=== PATIENT | female | born 1960 | race Caucasian/White ===

== ENCOUNTER 2018-06-18 17:20 | Emergency (ER) | payer MEDICARE, OTHER ==
[~2018-06-18] VITALS: Ht 162.6 cm; Wt 77.1 kg
[2018-06-18 19:10] LABS: Basophils # (auto) 0.2 uL; Basophils % (auto) 1.2 % (0.0-2.0); Eosinophils # (auto) 0 uL; Eosinophils % (auto) 0.1 % (0.0-7.0); Hematocrit 46.9 % (36.0-46.0); Hemoglobin 15.4 g/dL (12.2-16.2); Lymphocytes # (auto) 1.4 uL; Lymphocytes % (auto) 10.7 % (10.0-50.0); Mean Corpuscular Hemoglobin 28.8 pg (28.0-32.0); Mean Corpuscular Hgb Conc. 32.9 g/dL (32.0-36.0); Mean Corpuscular Volume 87.6 fL (80.0-100.0); Monocytes # (auto) 0.7 uL; Monocytes % (auto) 5.4 % (0.0-12.0); Neutrophils # (auto) 11.1 uL; Neutrophils % (auto) 82.6 % (37.0-80.0); Nucleated Red Blood Cells % 0.1 %; Platelet Count (auto) 336 10^3/uL (140-450); Red Blood Cells 5.36 10^6/uL (4.0-5.20); Red Cell Distribution Width 14.2 % (11.8-14.3); White Blood Cell 13.5 10^3/uL (4.4-10.8)
[2018-06-18 19:35] LABS: Albumin 2.8 g/dL (3.4-5.0); Anion Gap 11 (5-15); Blood Urea Nitrogen 11 mg/dL (7-18); Calcium 8.8 mg/dL (8.5-10.1); Carbon Dioxide 22 mmol/L (21-32); Chloride 98 mmol/L (98-107); Glucose 335 mg/dL (74-106); Potassium 3.5 mmol/L (3.5-5.1); Sodium 131 mmol/L (136-145)
[2018-06-18 19:41] LABS: Alanine Aminotransferase 21 U/L (13-56); Alkaline Phosphatase 104 U/L (45-117); Aspartate Aminotransferase 12 U/L (15-37); BUN/Creatinine Ratio 10.4; Bilirubin, Total 0.4 mg/dL (0.2-1.0); GFR African American 68 mL/min; GFR Non-African American 56 mL/min; Total Protein 8.2 g/dL (6.4-8.2)
[2018-06-18 22:15] VITALS: BP 154/83
[2018-06-18] MEDS ORDERED: cefTRIAXone SOD 1,000 MG VL IM ONE (22:30)
== END 2018-06-18 23:40 | disposition home or self-care (01) ==
LOC: ER 17:38
DX: J20.9 Acute bronchitis, unspecified (principal); E11.65 Type 2 diabetes mellitus with hyperglycemia; I10 Essential (primary) hypertension
CPT/HCPCS: 36415; 71046; 80053; 82962; 84484; 85025; 93005; 96372; 99284; J0696

== ENCOUNTER 2018-06-23 08:12 | Inpatient (IN) | payer MEDICARE ==
[~2018-06-23] VITALS: Ht 162.6 cm; Wt 86.4 kg
[2018-06-23] MEDS ORDERED: MORPHINE SULFATE 4 MG/ML SYR/VIAL IV ONE (08:45)
[2018-06-23] MEDS ORDERED: ONDANSETRON HCL 4 MG/2 ML VIAL IV ONE ×2 (08:45→09:00)
[2018-06-23] MEDS ORDERED: SODIUM CHLORIDE 0.9% 1,000 ML IV ONE (08:50)
[2018-06-23] MEDS ORDERED: METOPROLOL TARTRATE 1MG/1ML-5ML VIAL IV ONE ×2 (09:00→10:30)
[2018-06-23] MEDS ORDERED: ASPirin 81 mg TAB PO ONE (09:00)
[2018-06-23 09:19] LABS: Hemoglobin 15.6 g/dL (12.2-16.2); Mean Corpuscular Volume 86.8 fL (80.0-100.0)
[2018-06-23 09:22] LABS: Hematocrit 46.3 % (36.0-46.0); Mean Corpuscular Hemoglobin 29.3 pg (28.0-32.0); Mean Corpuscular Hgb Conc. 33.7 g/dL (32.0-36.0); Platelet Count (auto) 593 10^3/uL (140-450); Red Blood Cells 5.33 10^6/uL (4.0-5.20); Red Cell Distribution Width 13.9 % (11.8-14.3); White Blood Cell 14.7 10^3/uL (4.4-10.8)
[2018-06-23 09:23] LABS: Basophils % (manual) 0 (0.0-2.0); Blast Cells 0; Promyelocytes % 0; Reactive Lymphocytes 0
[2018-06-23] MEDS: MORPHINE SULFATE 4 MG/ML SYR/VIAL IV PRN ×3 (09:28→22:12)
[2018-06-23 09:30] LABS: Alanine Aminotransferase 22 U/L (13-56); Albumin 2.8 g/dL (3.4-5.0); Anion Gap 14 (5-15); Aspartate Aminotransferase 11 U/L (15-37); BUN/Creatinine Ratio 14.1; Blood Urea Nitrogen 13 mg/dL (7-18); Calcium 9.6 mg/dL (8.5-10.1); Carbon Dioxide 23 mmol/L (21-32); Chloride 96 mmol/L (98-107); GFR African American 80 mL/min; GFR Non-African American 66 mL/min; Potassium 3.6 mmol/L (3.5-5.1); Sodium 133 mmol/L (136-145)
[2018-06-23 09:32] LABS: Glucose 411 mg/dL (74-106)
[2018-06-23 09:35] LABS: Alkaline Phosphatase 121 U/L (45-117); Bilirubin, Total 0.4 mg/dL (0.2-1.0); Total Protein 9.5 g/dL (6.4-8.2)
[2018-06-23 09:58] LABS: Urine Bacteria NONE SEEN /hpf (None Seen); Urine Blood TRACE /uL (Negative); Urine Specific Gravity 1.022 (1.001-1.035); Urine WBC <1 /hpf (0 - 5)
[2018-06-23 10:14] LABS: Amphetamine Screen, Urine NEGATIVE (NEGATIVE); Barbiturate Scree,Urine NEGATIVE (NEGATIVE); Benzodiazephine Screen, Urine NEGATIVE (NEGATIVE); Cannabinoid Screen, Urine NEGATIVE (NEGATIVE); Cocaine Screen, Urine NEGATIVE (NEGATIVE); Phencyclidine Screen, Urine NEGATIVE (NEGATIVE)
[2018-06-23 10:18] LABS: Alcohol, Urine < 3.0 mg/dL (0-5); Opiate Scree,Urine NEGATIVE (NEGATIVE)
[2018-06-23] MEDS ORDERED: InsuLIN REG 1unit/0.01ml Soln (100units/ml) IV ONE (10:30)
[2018-06-23 11:36] LABS: INR 0.96 (0.9-1.15); Prothrombin Time 10.3 sec (9.27-12.13)
[2018-06-23] MEDS ORDERED: AMIODARONE HCL 150 MG in D5W 5% 100 ML IV ONE (12:30)
[2018-06-23] MEDS ORDERED: AMIODARONE HCL 900 MG in DEXTROSE 500 ML IV SCH ×2 (12:35→18:35)
[2018-06-23] MEDS ORDERED: HEPARIN SODIUM (PORCINE) 5000 UNITS/ML 1ML VIAL IV ONE (12:45)
[2018-06-23 13:19] LABS: Band Neutrophils % (manual) 1; Eosinophils % (manual) 2 (0-7); Monocytes % (manual) 6 (0-12)
[2018-06-23 13:20] LABS: Lymphocytes % (manual) 31 (10.0-50.0); Metamyelocytes % 1; Myelocytes % 1
[2018-06-23] MEDS ORDERED: LIDOCAINE 2%HCL (LOCAL ANESTH.) INJ 20ML MDV ONE (13:20)
[2018-06-23] MEDS ORDERED: IOHEXOL 350 MG/ML 100ML IJ ONE (13:20)
[2018-06-23] MEDS ORDERED: ANGIOMAX 250 MG VIAL IV ONE (13:28)
[2018-06-23] MEDS ORDERED: METOCLOPRAMIDE HCL 5MG/ml INJ 2ml VIAL ONE (13:28)
[2018-06-23] MEDS ORDERED: fentaNYL CITRATE 100 MCG/2 ML VL ONE (13:29)
[2018-06-23] MEDS ORDERED: SODIUM CHL 0.9% 0 ML ONE (13:29)
[2018-06-23] MEDS ORDERED: MIDAZOLAM HCL 1MG/1ML-2 ML VIAL ONE (13:29)
[2018-06-23] MEDS ORDERED: SODIUM CHL 0.9% 50 ML ONE (13:44)
[2018-06-23] MEDS ORDERED: CLOPIDOGREL BISULFATE 75 MG TAB ONE (14:06)
[2018-06-23] MEDS ORDERED: CLOPIDOGREL BISULFATE 75 MG TAB PO ONE (14:15)
[2018-06-23] MEDS ORDERED: METOPROLOL SUCCINATE XL 50 MG TAB PO ONE (14:15)
[2018-06-23] MEDS ORDERED: NITROGLYCERIN 0.4 MG SL TAB SL PRN ×2 (14:30→15:45)
[2018-06-23] MEDS ORDERED: MORPHINE SULFATE 4 MG/ML SYR/VIAL IV PRN (14:30)
[2018-06-23] MEDS: AMIODARONE HCL 200 MG TAB PO SCH ×2 (14:30→22:15)
[2018-06-23] MEDS ORDERED: DEXTROSE (50%) 50ML SYRG IV PRN (15:45)
[2018-06-23] MEDS ORDERED: BENAZEPRIL HCL 10 MG TAB PO ONE (15:45)
[2018-06-23] MEDS ORDERED: LABETALOL HCL 5 MG/ML ML 20ML VIAL IV PRN (15:45)
[2018-06-23] MEDS: SODIUM CHLORIDE 0.9% 1,000 ML IV SCH (15:45)
[2018-06-23] MEDS ORDERED: ACETAMINOPHEN 500 MG TAB PO PRN (16:00)
[2018-06-23] MEDS ORDERED: ISOSORBIDE MONONITRATE 60 MG TAB PO ONE (16:00)
[2018-06-23] MEDS ORDERED: HYDROcodone-ACET 5/325MG TAB PO PRN (16:00)
[2018-06-23 17:00] VITALS: BP 149/89
[2018-06-23] MEDS: InsuLIN REG 1unit/0.01ml Soln (100units/ml) SC SCH ×2 (17:00→22:15)
[2018-06-23] MEDS: ACCU-CHEK COMFORT CURVE STRIP VI SCH ×2 (17:00→22:13)
--- NOTE | 2018-06-23 17:00 | NUR ---
Pt received from matlab developer. Pt alert and oriented. V.S.S., resp even, unlabored. IV's in right and left AC's patent, sites clear. Angio-seal dressing to right groin puncture site clean, dry and intact. Pt denies numbness or tingling in left leg. Pedal pulses strong and equal. Pt denies chest pain. youth nutritional monitor HC35 reading NSR 97. O2 maintained at 2L/n.c.
[2018-06-23 17:02] VITALS: BP_SYST 147; BP_SYST 149; BP_DIAS 78; BP_DIAS 89
[2018-06-23 22:00] VITALS: BP 139/78
[2018-06-23] MEDS: ATORVASTATIN 20 MG TAB PO SCH (22:14)
[2018-06-23] MEDS: METOPROLOL SUCCINATE XL 50 MG TAB PO SCH (22:14)
--- NOTE | 2018-06-23 23:54 | NUR ---
High Blood Sugar The patient's 2200hr blood sugar check was high at 428. Gave the patient 10 units per protocol and called the Hospitalist. Recheck of the blood sugar was 369 but still did not receive a call back from the Hospitalist. Will try again at Midnight. Will continue to monitor. Addendum: 06/24/18 at 0815 by URI BRIZUELA RN Spoke to the Hospitalist, Amin, about the high blood sugar. She ordered a 500ml Bolus. Will continue to monitor.
[2018-06-24] MEDS ORDERED: TEMAZEPAM 15 MG CAP PO ONE (01:15)
[2018-06-24] MEDS ORDERED: SODIUM CHLORIDE 0.9% 500 ML IV ONE (02:00)
[2018-06-24] MEDS: MORPHINE SULFATE 4 MG/ML SYR/VIAL IV PRN ×5 (04:10→17:19)
[2018-06-24] MEDS: SODIUM CHLORIDE 0.9% 1,000 ML IV SCH ×3 (04:10→22:12)
--- NOTE | 2018-06-24 06:03 | NUR ---
Chest Pain The patient started complaining of chest pain at about 0400hrs. Stated it revolved around the left side of her chest and shoulder. The EKG rhythm looked unremarkable but the patient was moaning in pain. Administered 2mg Morphine per chest pain protocol. The patient's pain decreased from 10/10 to 5/10 within 30mins. About 2 hrs later the chest pain returned to a level of 10/10. Performed an EKG and gave another dose of Morphine 2mg. The EKG looked nearly identical as the one taken in the ER. Will notify the provider of the situation. Addendum: 06/24/18 at 0819 by URI BRIZUELA RN Spoke to Mrs. Amin (Hospitalist) about the chest pain. Explained that despite the Left heart Cath that was deemed normal, she is having 10/10 chest pain. Also explained the morphine was effective against her pain and the EKG looked similar to the one taken in the ER. She stated to discuss finding with the guitar repair technician when they round on the patient. Also informed Mrs. Amin of the high blood sugar per protocol, will continue to monitor.
[2018-06-24 06:12] VITALS: BP 132/62
[2018-06-24] MEDS: InsuLIN REG 1unit/0.01ml Soln (100units/ml) SC SCH ×4 (06:34→22:15)
[2018-06-24] MEDS: ACCU-CHEK COMFORT CURVE STRIP VI SCH ×4 (06:34→22:13)
[2018-06-24 06:37] LABS: Hematocrit 35.4 % (36.0-46.0); Mean Corpuscular Hemoglobin 29.1 pg (28.0-32.0); Mean Corpuscular Hgb Conc. 33.8 g/dL (32.0-36.0); Platelet Count (auto) 537 10^3/uL (140-450); Red Blood Cells 4.12 10^6/uL (4.0-5.20); Red Cell Distribution Width 13.4 % (11.8-14.3); White Blood Cell 12.5 10^3/uL (4.4-10.8)
[2018-06-24 07:01] LABS: Band Neutrophils % (manual) 0; Basophils % (manual) 0 (0.0-2.0); Blast Cells 0; Eosinophils % (manual) 0 (0-7); Metamyelocytes % 0; Myelocytes % 0; Promyelocytes % 0; Reactive Lymphocytes 0
[2018-06-24 07:02] LABS: BUN/Creatinine Ratio 26.7; Calcium 8.4 mg/dL (8.5-10.1); Magnesium 2.2 mg/dL (1.6-2.6); Potassium 3.7 mmol/L (3.5-5.1)
[2018-06-24 09:00] VITALS: BP 121/74
[2018-06-24] MEDS ORDERED: ISOSORBIDE MONONITRATE 60 MG TAB PO SCH (10:00)
[2018-06-24] MEDS: LEVOFLOXACIN 750MG 150 ML IV SCH (10:09)
[2018-06-24] MEDS: AMIODARONE HCL 200 MG TAB PO SCH (10:10)
[2018-06-24] MEDS: PANTOPRAZOLE 40 MG/10 ML VIAL IV SCH (10:10)
[2018-06-24] MEDS: ASPirin 81 mg TAB PO SCH (10:10)
[2018-06-24] MEDS: BENAZEPRIL HCL 10 MG TAB PO SCH (10:13)
[2018-06-24] MEDS: CLOPIDOGREL BISULFATE 75 MG TAB PO SCH (10:14)
[2018-06-24] MEDS: METOPROLOL SUCCINATE XL 50 MG TAB PO SCH ×2 (10:15→22:13)
[2018-06-24 10:45] LABS: Lymphocytes % (manual) 34 (10.0-50.0); Monocytes % (manual) 5 (0-12)
[2018-06-24 13:00] VITALS: BP 128/71
--- NOTE | 2018-06-24 13:19 | NUR ---
PATIENT COMPLAINING OF CHEST PAIN. DID EKG AND HAD IT READ BY DR. BORGES WHO SAID EKG WAS NORMAL.
--- NOTE | 2018-06-24 13:52 | NUR ---
PAGED DR. ZAPIEN
--- NOTE | 2018-06-24 13:53 | NUR ---
DR. ZAPIEN GAVE ORDER FOR TORADOL AND IS AWARE OF PATIENTS CHEST PAIN AND EKG.
[2018-06-24] MEDS: KETOROLAC TROMETH 30 MG/ML 1ML VIAL IV PRN ×2 (14:35→22:23)
[2018-06-24 17:00] VITALS: BP 117/74
[2018-06-24] MEDS ORDERED: DEXTROSE (50%) 50ML SYRG IV PRN (18:45)
[2018-06-24 21:30] VITALS: BP_SYST 110; BP_SYST 147; BP_DIAS 57; BP_DIAS 74
[2018-06-24] MEDS: ISOSORBIDE MONONITRATE 60 MG TAB PO SCH (22:14)
[2018-06-24] MEDS: ATORVASTATIN 20 MG TAB PO SCH (22:15)
--- NOTE | 2018-06-24 22:51 | NUR ---
New IV and Pain Mgmt The patient complained of her IV hurting during my assessment at change of shift. Found her right hand swollen, painful. Discontinued the IV and started a new one at the Left Wrist, 22g. The patient requested Toradol again with her night time meds. Denied chest pain but stated the pain was located around the back of her neck and going towards her left shoulder. Will continue to monitor.
[2018-06-25 04:30] VITALS: BP 101/64
[2018-06-25] MEDS: KETOROLAC TROMETH 30 MG/ML 1ML VIAL IV PRN ×4 (04:32→22:55)
[2018-06-25] MEDS: InsuLIN REG 1unit/0.01ml Soln (100units/ml) SC SCH ×4 (06:34→21:45)
[2018-06-25] MEDS: glipiZIDE 5 MG TAB PO SCH ×3 (06:35→17:39)
[2018-06-25] MEDS: ACCU-CHEK COMFORT CURVE STRIP VI SCH ×4 (06:36→21:45)
[2018-06-25] MEDS: metFORMIN HYDROCHLORIDE 500 MG TAB PO SCH ×2 (08:00→17:19)
[2018-06-25] MEDS: SODIUM CHLORIDE 0.9% 1,000 ML IV SCH ×2 (08:02→11:25)
[2018-06-25 09:00] VITALS: BP 96/55
[2018-06-25] MEDS: LEVOFLOXACIN 750MG 150 ML IV SCH (10:01)
[2018-06-25] MEDS: AMIODARONE HCL 200 MG TAB PO SCH (10:03)
[2018-06-25] MEDS: CLOPIDOGREL BISULFATE 75 MG TAB PO SCH (10:03)
[2018-06-25] MEDS: PANTOPRAZOLE 40 MG/10 ML VIAL IV SCH (10:05)
[2018-06-25] MEDS: ASPirin 81 mg TAB PO SCH (10:05)
[2018-06-25] MEDS: ISOSORBIDE MONONITRATE 60 MG TAB PO SCH ×2 (10:48→22:50)
[2018-06-25] MEDS: BENAZEPRIL HCL 10 MG TAB PO SCH (10:56)
[2018-06-25] MEDS: METOPROLOL SUCCINATE XL 50 MG TAB PO SCH ×2 (10:56→22:45)
[2018-06-25] MEDS: MORPHINE SULFATE 4 MG/ML SYR/VIAL IV PRN (12:27)
[2018-06-25] MEDS: ONDANSETRON HCL 4 MG/2 ML VIAL IV PRN ×2 (12:27→22:54)
[2018-06-25 13:00] VITALS: BP 114/66
[2018-06-25 17:00] VITALS: BP 90/53
--- NOTE | 2018-06-25 19:20 | NUR ---
Opening Shift Note Assumed care of patient, pt resting, No S/S of distress/SOB or pain noted. Instructed on POC and to call for assist PRN, will continue to monitor for changes Q1hr and PRN. 2 x side rails up, bed locked and in lowest position, call light within reach,
--- NOTE | 2018-06-25 21:25 | NUR ---
PATIENT FEELS NAUSEOUS Attempted to insert IV unsuccessful, will attempt as pt is in pain, will continue to monitor pt.
[2018-06-25 22:00] VITALS: BP 110/59
--- NOTE | 2018-06-25 22:35 | NUR ---
IV insertion IV access obtained, via clean sterile technique by inserting 22 gauge catheter at RFA after 2 attempt(s). IV secured properly. No trauma to site. Patient tolerated well.. IV removal IV DC'd on Rwrist 22 g with clean sterile technique, catheter fully intact. Pressure dressing applied to site. Patient tolerated well. NOTE: NOTE:
[2018-06-25] MEDS: ATORVASTATIN 20 MG TAB PO SCH (22:54)
[2018-06-26] MEDS: SODIUM CHLORIDE 0.9% 1,000 ML IV SCH ×3 (03:45→23:45)
[2018-06-26 05:00] VITALS: BP 119/62
[2018-06-26] MEDS: ONDANSETRON HCL 4 MG/2 ML VIAL IV PRN ×3 (05:55→22:30)
[2018-06-26] MEDS: ACCU-CHEK COMFORT CURVE STRIP VI SCH ×4 (06:05→22:00)
[2018-06-26] MEDS: InsuLIN REG 1unit/0.01ml Soln (100units/ml) SC SCH ×4 (06:05→22:55)
[2018-06-26] MEDS: glipiZIDE 5 MG TAB PO SCH ×3 (06:06→18:00)
--- NOTE | 2018-06-26 08:00 | NUR ---
RECEIVED PT RESTING IN BED, CALL LIGHT WITHIN REACH, PT REPORTS TO HAVE NAUSEA AND VOMITING LAST NIGHT, PT WAS GIVEN ANTI-NAUSEA MEDICATION, PT WAS ABLE TO EAT BREAKFAST THIS MORNING.
[2018-06-26] MEDS: metFORMIN HYDROCHLORIDE 500 MG TAB PO SCH ×2 (08:08→17:31)
[2018-06-26 09:00] VITALS: BP 121/75
[2018-06-26] MEDS: AMIODARONE HCL 200 MG TAB PO SCH (09:37)
[2018-06-26] MEDS: ISOSORBIDE MONONITRATE 60 MG TAB PO SCH ×2 (09:37→22:37)
[2018-06-26] MEDS: ASPirin 81 mg TAB PO SCH (09:37)
[2018-06-26] MEDS: PANTOPRAZOLE 40 MG/10 ML VIAL IV SCH (09:37)
[2018-06-26] MEDS: LEVOFLOXACIN 750MG 150 ML IV SCH (09:37)
[2018-06-26] MEDS: BENAZEPRIL HCL 10 MG TAB PO SCH (09:38)
[2018-06-26] MEDS: METOPROLOL SUCCINATE XL 50 MG TAB PO SCH ×2 (09:38→22:29)
[2018-06-26] MEDS: CLOPIDOGREL BISULFATE 75 MG TAB PO SCH (09:38)
--- NOTE | 2018-06-26 11:00 | NUR ---
PAGED DR. ZAPIEN AND LEFT A MESSAGE INFORMING THAT PT HAS ABDOMINAL DISTENTION, PT HAS HAVE NAUSEA AND VOMITING, PT REPORTS DIFFICULT TO LAY DOWN AND TO BREATH DUE TO THE ABDOMINAL DISTENTION, PT IS BURPING A LOT, PT IS ASKING FOR MEDICATION FOR THAT AND OR ORDER AN ABDOMINAL ULTRASOUND. AWAITING CALL BACK.
--- NOTE | 2018-06-26 12:20 | NUR ---
RECEIVED CALL BACK FROM DR. ZAPIEN, DOCTOR INFORMED PT'S CURRENT STATUS, PT HAS ABDOMINAL DISTENTION, NAUSEA, VOMITING, PT REPORTS DIFFICULTY TO LAY DOWN AND TO BREATH, PT BURPING A LOT, ORDERS RECEIVED FOR A GI CONSULT AND KUB.
[2018-06-26 13:00] VITALS: BP 121/71
--- NOTE | 2018-06-26 13:38 | NUR ---
DR. SOLITARIO / GI AT BED SIDE TO SEE PT.
[2018-06-26] MEDS ORDERED: GASTROGRAFIN 30 ML SOL ONE (13:47)
[2018-06-26] MEDS ORDERED: IOHEXOL 300 MG/ML 100ML BOTTLE IJ ONE (13:47)
--- NOTE | 2018-06-26 16:17 | NUR ---
Pt taken to radiology for CT scan.
[2018-06-26 17:00] VITALS: BP 144/76
[2018-06-26] MEDS: KETOROLAC TROMETH 30 MG/ML 1ML VIAL IV PRN (17:36)
--- NOTE | 2018-06-26 21:20 | NUR ---
PAGED Informed Dr. Bojorquez in regards to pt's las BM, pt has complain of abdominal pain and distention. pt last BM was on the 06/23. will await MD response and continue to monitor pt.
[2018-06-26 21:30] VITALS: BP 153/93
--- NOTE | 2018-06-26 21:51 | NUR ---
MD ZAPIEN CALL BACK telephone order Read Back magnesium Citrate 300 cc po now will carry out md order
[2018-06-26] MEDS ORDERED: MAGNESIUM CITRATE SOLUTION 300 ML BTL PO ONE (22:00)
--- NOTE | 2018-06-26 22:20 | NUR ---
PT ROUNDS Pt reported she had a DM recently and was a little loose, will monitor pt.
[2018-06-26] MEDS: ATORVASTATIN 20 MG TAB PO SCH (22:29)
[2018-06-26] MEDS: MORPHINE SULFATE 4 MG/ML SYR/VIAL IV PRN (22:30)
[2018-06-27] MEDS: MORPHINE SULFATE 4 MG/ML SYR/VIAL IV PRN ×2 (04:01→22:22)
[2018-06-27] MEDS: ONDANSETRON HCL 4 MG/2 ML VIAL IV PRN ×2 (04:43→11:45)
[2018-06-27 05:00] VITALS: BP 105/66
[2018-06-27] MEDS: ACCU-CHEK COMFORT CURVE STRIP VI SCH ×4 (06:53→22:23)
[2018-06-27] MEDS: glipiZIDE 5 MG TAB PO SCH ×2 (06:56→18:30)
[2018-06-27] MEDS: InsuLIN REG 1unit/0.01ml Soln (100units/ml) SC SCH ×4 (06:57→22:23)
--- NOTE | 2018-06-27 07:20 | NUR ---
Received report from power and recovery shift engineer RN that patient's Metformin on hold as ordered.
--- NOTE | 2018-06-27 07:25 | NUR ---
Patient asleep, no acute distress noted.
[2018-06-27] MEDS: metFORMIN HYDROCHLORIDE 500 MG TAB PO SCH ×2 (08:00→11:55)
[2018-06-27] MEDS ORDERED: POTASSIUM CHL 20MEQ/100ML 100 ML IV ONE (08:27)
[2018-06-27 09:00] VITALS: BP 130/76
[2018-06-27] MEDS: SODIUM CHLORIDE 0.9% 1,000 ML IV SCH ×2 (09:45→15:52)
[2018-06-27] MEDS: METOPROLOL SUCCINATE XL 50 MG TAB PO SCH ×2 (10:00→22:23)
--- NOTE | 2018-06-27 10:00 | NUR ---
Patient said her IV site is uncomfortable for her, refused to have another IV line inserted.
--- NOTE | 2018-06-27 10:50 | NUR ---
Patient sitting in bed, awake, oriented x4.
--- NOTE | 2018-06-27 11:10 | NUR ---
Patient walking on the hallway.
[2018-06-27] MEDS: PANTOPRAZOLE 40 MG/10 ML VIAL IV SCH (11:21)
[2018-06-27] MEDS: CLOPIDOGREL BISULFATE 75 MG TAB PO SCH (11:21)
[2018-06-27] MEDS: ASPirin 81 mg TAB PO SCH (11:22)
[2018-06-27] MEDS: ISOSORBIDE MONONITRATE 60 MG TAB PO SCH ×2 (11:22→22:23)
[2018-06-27] MEDS: AMIODARONE HCL 200 MG TAB PO SCH (11:22)
[2018-06-27] MEDS: BENAZEPRIL HCL 10 MG TAB PO SCH (11:23)
--- NOTE | 2018-06-27 11:45 | NUR ---
Patient stated she's nauseous. IV site on the left forearm, 22 G, intact and patent, can be flushed with NS. Zofran IVP given as ordered.
[2018-06-27 13:00] VITALS: BP 130/79
[2018-06-27] MEDS ORDERED: FUROSEMIDE 40 MG/4 ML VIAL IV ONE (13:00)
[2018-06-27] MEDS: POTASSIUM CHL 20 Meq TABLET PO ONE ×2 (13:00→14:23)
--- NOTE | 2018-06-27 14:30 | NUR ---
Patient unable to tolerate Klor Con pills.
--- NOTE | 2018-06-27 14:35 | NUR ---
Pharmacy said Naomi Shannon liquid form not available. Will inform the MD.
--- NOTE | 2018-06-27 14:45 | NUR ---
NUTRITION ASSESSMENT NOTES Please refer to link notes of nutrition screen form filed under the intervention section of the plan of care for further details. Est. Needs: 1300 kcal to 1750 kcal (15-20 kcal/kgBW), 55 gms to 86 gms pro (0.8-1.0 gms/kgBW). Will continue to monitor pertinent labs and reassess nutrient need prn Thank you. Addendum: 06/27/18 at [address] Amended: Links added.
--- NOTE | 2018-06-27 15:25 | NUR ---
Keep patient NPO after midnight for patient's NM HIDA Scan on 06/28/2018.
[2018-06-27 17:00] VITALS: BP 113/65
[2018-06-27] MEDS: KETOROLAC TROMETH 30 MG/ML 1ML VIAL IV PRN (18:30)
--- NOTE | 2018-06-27 18:30 | NUR ---
Patient stated she's in pain, pain level at 8/10 at this time. Toradol Inj via IVP given for pain as ordered.
--- NOTE | 2018-06-27 20:00 | NUR ---
PATIENT MOVED FROM 98A to 87A
[2018-06-27 22:06] VITALS: BP 143/86
[2018-06-27] MEDS: ATORVASTATIN 20 MG TAB PO SCH (22:23)
[2018-06-28 05:17] VITALS: BP 109/65
[2018-06-28] MEDS: SODIUM CHLORIDE 0.9% 1,000 ML IV SCH ×2 (05:45→11:36)
[2018-06-28] MEDS: ACCU-CHEK COMFORT CURVE STRIP VI SCH ×4 (06:13→22:43)
[2018-06-28] MEDS: InsuLIN REG 1unit/0.01ml Soln (100units/ml) SC SCH ×4 (06:13→22:43)
[2018-06-28] MEDS: glipiZIDE 5 MG TAB PO SCH ×2 (06:13→17:02)
[2018-06-28] MEDS: metFORMIN HYDROCHLORIDE 500 MG TAB PO SCH ×2 (07:28→16:47)
--- NOTE | 2018-06-28 07:30 | NUR ---
Patient in bed, asleep. No acute distress noted.
--- NOTE | 2018-06-28 07:58 | NUR ---
[facility] made aware patient is on NPO after midnight for NM HIDA Scan.
--- NOTE | 2018-06-28 07:58 | NUR ---
Received a call from [facility]. Edwige made aware patient is
[2018-06-28 08:53] VITALS: BP 134/86
--- NOTE | 2018-06-28 09:00 | NUR ---
Patient off unit. At Nuclear Medicine for NM HIDA Scan.
--- NOTE | 2018-06-28 10:12 | NUR ---
Patient back to room, sitting in bed. No acute distress noted.
[2018-06-28] MEDS: AMIODARONE HCL 200 MG TAB PO SCH (11:02)
[2018-06-28] MEDS: CLOPIDOGREL BISULFATE 75 MG TAB PO SCH (11:02)
[2018-06-28] MEDS: PANTOPRAZOLE 40 MG/10 ML VIAL IV SCH (11:02)
[2018-06-28] MEDS: METOPROLOL SUCCINATE XL 50 MG TAB PO SCH ×2 (11:03→22:43)
[2018-06-28] MEDS: ASPirin 81 mg TAB PO SCH (11:04)
[2018-06-28] MEDS: ISOSORBIDE MONONITRATE 60 MG TAB PO SCH ×2 (11:04→22:41)
[2018-06-28] MEDS: BENAZEPRIL HCL 10 MG TAB PO SCH (11:04)
[2018-06-28 13:00] VITALS: BP 129/66
--- NOTE | 2018-06-28 14:38 | NUR ---
Patient wants to go home, asked if the doctor will discharge her today.
--- NOTE | 2018-06-28 14:41 | NUR ---
Informed Dr. Bojorquez that patient asked if she's going home today. Waiting for MD to call back.
--- NOTE | 2018-06-28 16:35 | NUR ---
Dr. Bojorquez said patient is going to be discharged tomorrow, Sunday. Will inform the patient.
--- NOTE | 2018-06-28 16:45 | NUR ---
Patient said Dr. Bojorquez came over, that she's going home tomorrow.
[2018-06-28 17:00] VITALS: BP 149/84
[2018-06-28 17:36] LABS: Hemoglobin 12.4 g/dL (12.2-16.2)
[2018-06-28 17:37] LABS: Hematocrit 37.6 % (36.0-46.0); Mean Corpuscular Hemoglobin 29.2 pg (28.0-32.0); Mean Corpuscular Volume 88.5 fL (80.0-100.0); Platelet Count (auto) 646 10^3/uL (140-450); Red Blood Cells 4.25 10^6/uL (4.0-5.20); Red Cell Distribution Width 14.4 % (11.8-14.3); White Blood Cell 8.1 10^3/uL (4.4-10.8)
[2018-06-28 17:42] LABS: Albumin 2.1 g/dL (3.4-5.0); Calcium 8.4 mg/dL (8.5-10.1); Potassium 4.1 mmol/L (3.5-5.1)
[2018-06-28 17:45] LABS: BUN/Creatinine Ratio 15.2; Bilirubin, Total 0.3 mg/dL (0.2-1.0); Total Protein 7.1 g/dL (6.4-8.2)
[2018-06-28 17:52] LABS: Band Neutrophils % (manual) 0; Basophils % (manual) 0 (0.0-2.0); Blast Cells 0; Metamyelocytes % 0; Promyelocytes % 0; Reactive Lymphocytes 0
[2018-06-28 19:27] LABS: Eosinophils % (manual) 1 (0-7); Lymphocytes % (manual) 22 (10.0-50.0); Monocytes % (manual) 3 (0-12)
[2018-06-28 19:28] LABS: Myelocytes % 1
--- NOTE | 2018-06-28 19:40 | NUR ---
Opening Shift Note Assumed care of patient, awake and alert. No S/S of distress/SOB or pain. Instructed on POC and to call for assist PRN, will continue to monitor for changes Q1hr and PRN.
[2018-06-28 22:00] VITALS: BP 168/90
[2018-06-28] MEDS: ATORVASTATIN 20 MG TAB PO SCH (22:41)
[2018-06-29] MEDS ORDERED: POTASSIUM CHL 20 Meq TABLET PO ONE (00:30)
[2018-06-29] MEDS ORDERED: FUROSEMIDE 40 MG/4 ML VIAL IV ONE (00:30)
[2018-06-29] MEDS ORDERED: ISOSORBIDE MONONITRATE 60 MG TAB PO ONE (00:30)
[2018-06-29] MEDS ORDERED: TEMAZEPAM 15 MG CAP PO PRN (00:30)
[2018-06-29] MEDS: SODIUM CHLORIDE 0.9% 1,000 ML IV SCH ×2 (03:19→11:45)
[2018-06-29 05:00] VITALS: BP 118/73
[2018-06-29] MEDS: InsuLIN REG 1unit/0.01ml Soln (100units/ml) SC SCH ×3 (06:53→16:28)
[2018-06-29] MEDS: glipiZIDE 5 MG TAB PO SCH ×2 (06:53→16:28)
[2018-06-29] MEDS: ACCU-CHEK COMFORT CURVE STRIP VI SCH ×3 (06:53→16:28)
--- NOTE | 2018-06-29 07:30 | NUR ---
Patient sitting on bed, awake, oriented x4. No acute distress noted, no coughing noted. Patient verbalized "My is also here in the hospital."
[2018-06-29] MEDS: metFORMIN HYDROCHLORIDE 500 MG TAB PO SCH ×2 (07:57→12:15)
[2018-06-29 08:44] VITALS: BP 140/83
[2018-06-29] MEDS: CLOPIDOGREL BISULFATE 75 MG TAB PO SCH (10:20)
[2018-06-29] MEDS: PANTOPRAZOLE 40 MG/10 ML VIAL IV SCH (10:20)
[2018-06-29] MEDS: BENAZEPRIL HCL 10 MG TAB PO SCH (10:21)
[2018-06-29] MEDS: ISOSORBIDE MONONITRATE 60 MG TAB PO SCH (10:21)
[2018-06-29] MEDS: ASPirin 81 mg TAB PO SCH (10:21)
[2018-06-29] MEDS: AMIODARONE HCL 200 MG TAB PO SCH (10:22)
[2018-06-29] MEDS: METOPROLOL SUCCINATE XL 50 MG TAB PO SCH (10:22)
--- NOTE | 2018-06-29 10:25 | NUR ---
Patient asked what time is she going home. Explained to patient I will call Dr. Bojorquez if he's going to discharge her today.
--- NOTE | 2018-06-29 12:09 | NUR ---
Patient complained of feeling bloated when getting continuous IV fluids. NS drip not administered.
[2018-06-29 12:43] VITALS: BP 135/82
--- NOTE | 2018-06-29 15:12 | NUR ---
Called Dr. Bojorquez. Asked MD for how many days are the prescription for Plavix, Imdur, Amiodarone, Lasix, Potassium; for call in to patient's Pharmacy. Dr. Bojorquez ordered the call in prescription is for 30 days, to see patient in a week.
--- NOTE | 2018-06-29 15:20 | NUR ---
Patient made aware she got discharge orders, to call in prescription as per Dr. Bojorquez. Patient said her Pharmacy is [facility] at [facility]/[place].
--- NOTE | 2018-06-29 15:32 | NUR ---
Called [facility] at [facility]/[address] ([phone]). Spoke with Pharmacist Esthela to call in prescription as per Elis Wilson; for Plavix 75 mg PO QD #30, Imdur 60 mg PO BID #30, Amiodarone 400 mg PO QD #30, Lasix 40 mg PO QD, Potassium 20 MEQ PO QD #30. May said medications ready for picking tech in two hours. Patient made aware.
[2018-06-29 15:40] VITALS: BP 135/82
--- NOTE | 2018-06-29 16:25 | NUR ---
Discharge papers given to patient, reminded the patient that her call in prescription at [facility]/[place] will be available for pickle maker in two hours. IV line on the left forearm removed, IV catheter intact, pressure dressing applied.
[2018-06-29 16:36] VITALS: BP 135/93
--- NOTE | 2018-06-29 16:40 | NUR ---
Patient said she's waiting for her daughter to come over from [place] today, she will be at her 's room. Family member at bedside. Patient's admitted to [facility] yesterday.
--- NOTE | 2018-06-29 16:45 | NUR ---
Patient is discharged.
== END 2018-06-29 16:50 | disposition home or self-care (01) | DRG 280 ==
LOC: ER 08:12 → EDUNIT# 08:12 → CATH 13:15 → TELE-WESTW 16:29
PROVIDERS: ADMIT Internal Medicine Cardiovascular Disease; ATTEND Internal Medicine Cardiovascular Disease
PROC: B2111ZZ Fluoroscopy of Multiple Coronary Arteries using Low Osmolar Contrast (ICD-10-PCS; principal; 2018-06-23)
DX: I21.3 ST elevation (STEMI) myocardial infarction of unspecified site (principal); I50.21 Acute systolic (congestive) heart failure; E44.0 Moderate protein-calorie malnutrition; I47.2 Ventricular tachycardia; I25.119 Atherosclerotic heart disease of native coronary artery with unspecified angina pectoris; E11.65 Type 2 diabetes mellitus with hyperglycemia; K21.9 Gastro-esophageal reflux disease without esophagitis; E78.5 Hyperlipidemia, unspecified; I25.5 Ischemic cardiomyopathy; D72.829 Elevated white blood cell count, unspecified; E11.21 Type 2 diabetes mellitus with diabetic nephropathy; E11.51 Type 2 diabetes mellitus with diabetic peripheral angiopathy without gangrene; E66.01 Morbid (severe) obesity due to excess calories; I11.0 Hypertensive heart disease with heart failure; R14.0 Abdominal distension (gaseous); E11.40 Type 2 diabetes mellitus with diabetic neuropathy, unspecified; I25.10 Atherosclerotic heart disease of native coronary artery without angina pectoris; K76.0 Fatty (change of) liver, not elsewhere classified; K80.20 Calculus of gallbladder without cholecystitis without obstruction; Z68.32 Body mass index [BMI] 32.0-32.9, adult; Z88.2 Allergy status to sulfonamides; Z79.84 Long term (current) use of oral hypoglycemic drugs
CPT/HCPCS: 36415; 71045; 74018; 74177; 78226; 80048; 80053; 80061; 80307; 81001; 82962; 83036; 83735; 83880; 84443; 84484; 85007; 85027; 85379; 85610; 85730; 87040; 93005; 93306; 94761; 96361; 96374; 96375; 99152; 99291; A6257; C9113; G0378; J1815; J1885; J1956; J2250; J2405; J3480; J7060

== ENCOUNTER 2022-06-26 08:32 | Emergency (ER) | payer MEDICARE, OTHER ==
[~2022-06-26] VITALS: Ht 162.6 cm; Wt 77.0 kg
[2022-06-26 09:18] VITALS: BP 165/87
[2022-06-26] MEDS ORDERED: MECLIZINE HCL 25 MG TAB PO ONE (09:30)
[2022-06-26] MEDS ORDERED: ACETAMINOPHEN 500 MG TAB PO ONE (09:30)
[2022-06-26] MEDS ORDERED: LORA-483 GT (10:36)
[2022-06-26] MEDS ORDERED: IBUP600T27 PO (10:36)
[2022-06-26] MEDS ORDERED: ACET-1158 PO (10:36)
[2022-06-26] MEDS ORDERED: BENZ100C19 PO (10:36)
== END 2022-06-26 10:37 | disposition home or self-care (01) ==
LOC: ER 08:32
DX: J06.9 Acute upper respiratory infection, unspecified (principal); E11.9 Type 2 diabetes mellitus without complications; E78.5 Hyperlipidemia, unspecified; I10 Essential (primary) hypertension; Z88.2 Allergy status to sulfonamides; Z20.822 Contact with and (suspected) exposure to COVID-19
CPT/HCPCS: 36415; 71046; 87426; 87804; 99284; J8597

== ENCOUNTER 2022-11-18 22:40 | Inpatient (IN) | payer OTHER ==
[~2022-11-18] VITALS: Ht 165.1 cm; Wt 97.8 kg
[~2022-11-18 22:40] MED LIST: ACET500T58 PO; BENZ100C19 PO; IBUP-1454 PO; LORA-483 GT
[2022-11-18 23:15] LABS: Basophils # (auto) 0.1 10 ^3/uL (0-0.2); Basophils % (auto) 0.7 % (0.0-2.0); Eosinophils # (auto) 0.3 10 ^3/uL (0-0.8); Eosinophils % (auto) 2.4 % (0.0-7.0); Hemoglobin 13.2 g/dL (12.2-16.2); Lymphocytes # (auto) 3.4 10 ^3/uL (0.4-5.4); Mean Corpuscular Hemoglobin 29.7 pg (28.0-32.0); Mean Corpuscular Hgb Conc. 32.9 g/dL (32.0-36.0); Mean Corpuscular Volume 90.1 fL (80.0-100.0); Monocytes # (auto) 0.8 10 ^3/uL (0-1.3); Monocytes % (auto) 6.7 % (0.0-12.0); Neutrophils # (auto) 6.7 10 ^3/uL (1.6-8.6); Neutrophils % (auto) 60.2 % (37.0-80.0); Nucleated Red Blood Cells % 0.2 %; Red Blood Cells 4.44 10^6/uL (4.0-5.20); White Blood Cell 11.2 10^3/uL (4.4-10.8)
[2022-11-18 23:22] LABS: INR 0.98 (0.9-1.15); Partial Thromboplastin Time 22.4 SEC (24.5-34.5); Prothrombin Time 10.3 sec (9.3-11.8)
[2022-11-18 23:23] LABS: Albumin 2.7 g/dL (3.4-5.0); Calcium 8.2 mg/dL (8.5-10.1); Magnesium 2.2 mg/dL (1.6-2.6); Potassium 3.2 mmol/L (3.5-5.1)
[2022-11-18 23:26] LABS: BUN/Creatinine Ratio 17.7 (10.0-20.0); Bilirubin, Total 0.2 mg/dL (0.2-1.0); Total Protein 6.3 g/dL (6.4-8.2)
[2022-11-18 23:45] VITALS: PULSE 70; RESP 18; O2SAT 93
[2022-11-19] MEDS ORDERED: CALCIUM GLUC 1,000mg/50ml-NS 50 ML IV ONE (01:00)
[2022-11-19] MEDS ORDERED: SODIUM CHLORIDE 0.9% 1,000 ML IV ONE (01:00)
[2022-11-19] MEDS ORDERED: ACETAMINOPHEN 500 MG TAB PO ONE (01:00)
[2022-11-19] MEDS ORDERED: POTASSIUM EFFERVESENT TAB 25 MEQ PO ONE (01:00)
[2022-11-19] MEDS ORDERED: ASPirin 325 MG TAB PO ONE (03:00)
[2022-11-19] MEDS ORDERED: MORPHINE SULFATE INJ 2 MG/ml SYRG IV PRN (03:00)
[2022-11-19] MEDS ORDERED: ACETAMINOPHEN 325 MG TAB PO PRN (03:00)
[2022-11-19] MEDS ORDERED: ALBUMIN 25% 100 ML IV ONE (03:00)
[2022-11-19] MEDS ORDERED: DEXTROSE (50%) 50ML SYRG IV PRN (03:00)
[2022-11-19] MEDS ORDERED: ONDANSETRON HCL 4 MG/2 ML VIAL IV PRN (03:00)
[2022-11-19] MEDS ORDERED: hydrALAZINE HCL 20 MG/ML VL IV PRN (03:00)
[2022-11-19] MEDS ORDERED: HEPARIN SODIUM (PORCINE) 5000 UNITS/ML 1ML VIAL IV ONE (03:00)
[2022-11-19] MEDS ORDERED: DOCUSATE SOD 100 MG CAP PO PRN (03:00)
[2022-11-19] MEDS ORDERED: NITROGLYCERIN 0.4 MG SL TAB SL PRN (03:00)
[2022-11-19] MEDS: POTASSIUM CHL 20MEQ/100ML 100 ML IV SCH ×2 (04:06→04:44)
[2022-11-19] MEDS: HEPARIN DRIP/D5W 100UNITS/ML 250 ML IV SCH (04:43)
[2022-11-19] MEDS: SODIUM CHLORIDE 0.9% 1,000 ML IV SCH ×2 (04:46→19:57)
[2022-11-19 04:51] LABS: Basophils # (auto) 0.1 10 ^3/uL (0-0.2); Basophils % (auto) 0.7 % (0.0-2.0); Eosinophils # (auto) 0.3 10 ^3/uL (0-0.8); Eosinophils % (auto) 2.6 % (0.0-7.0); Hemoglobin 13.1 g/dL (12.2-16.2); Mean Corpuscular Hemoglobin 30.3 pg (28.0-32.0); Mean Corpuscular Hgb Conc. 33.5 g/dL (32.0-36.0); Mean Corpuscular Volume 90.6 fL (80.0-100.0); Monocytes # (auto) 0.6 10 ^3/uL (0-1.3); Neutrophils % (auto) 50.7 % (37.0-80.0); Nucleated Red Blood Cells % 0.3 %; Red Cell Distribution Width 13.9 % (11.8-14.3)
[2022-11-19 04:59] LABS: Potassium 3.7 mmol/L (3.5-5.1)
[2022-11-19 05:06] LABS: Albumin 2.8 g/dL (3.4-5.0); Calcium 8.3 mg/dL (8.5-10.1)
[2022-11-19 05:21] LABS: Bilirubin, Total 0.3 mg/dL (0.2-1.0); Total Protein 6.3 g/dL (6.4-8.2)
[2022-11-19 07:20] VITALS: RESP 18; O2SAT 96
[2022-11-19] MEDS: ACCU-CHEK COMFORT CURVE STRIP VI SCH ×4 (07:40→22:34)
[2022-11-19] MEDS: InsuLIN REG 1unit/0.01ml Soln (100units/ml) SC SCH ×4 (07:42→22:39)
[2022-11-19] MEDS ORDERED: NITROGLYCERIN 50MG/250ML 250 ML IV SCH (08:30)
[2022-11-19] MEDS ORDERED: CLOPIDOGREL BISULFATE 75 MG TAB PO ONE (08:30)
[2022-11-19 09:52] LABS: Urine Bacteria NONE SEEN /hpf (None Seen); Urine Blood Negative /uL (Negative); Urine Clarity Clear (Clear); Urine Color Colorless (Yellow); Urine Protein, UAD 1+ (Negative); Urine Specific Gravity 1.008 (1.001-1.035); Urine Urobilinogen Normal (Negative); Urine WBC 1 /hpf (0 - 5); Urine pH 5.5 (5.0-8.0)
[2022-11-19] MEDS ORDERED: HEPARIN SODIUM (PORCINE) 5000 UNITS/ML 1ML VIAL SC SCH (10:00)
[2022-11-19] MEDS: ASPirin 81 mg TAB PO SCH (10:05)
[2022-11-19] MEDS ORDERED: POTASSIUM CHL 20 Meq TABLET PO ONE (10:15)
[2022-11-19] MEDS: HYDROcodone-ACET 5/325MG TAB PO PRN ×2 (10:46→22:54)
[2022-11-19 11:30] LABS: Cholesterol 147 mg/dL (< 200); HDL Cholesterol 62 mg/dL (40-59); LDL Cholesterol 74 mg/dL (< 100); Triglycerides 99 mg/dL (< 150)
[2022-11-19 12:18] LABS: INR 1.02 (0.9-1.15); Prothrombin Time 10.7 sec (9.3-11.8)
[2022-11-19 19:04] LABS: INR 1.02 (0.9-1.15); Prothrombin Time 10.7 sec (9.3-11.8)
[2022-11-19 19:35] VITALS: RESP 16; O2SAT 98
[2022-11-19] MEDS: ATORVASTATIN 20 MG TAB PO SCH (22:38)
[2022-11-20] VITALS (59 sets, daily range): BP systolic 115–169; BP diastolic 57–101; PULSE 71–97; RESP 9–21; TEMP 97.6–98.2; O2SAT 91–99
[2022-11-20 01:32] LABS: INR 1.02 (0.9-1.15); Prothrombin Time 10.7 sec (9.3-11.8)
[2022-11-20 01:40] LABS: Partial Thromboplastin Time 88.7 SEC (24.5-34.5)
[2022-11-20] MEDS: HEPARIN DRIP/D5W 100UNITS/ML 250 ML IV SCH (06:11)
[2022-11-20 06:27] LABS: Basophils # (auto) 0.1 10 ^3/uL (0-0.2); Basophils % (auto) 0.9 % (0.0-2.0); Eosinophils # (auto) 0.4 10 ^3/uL (0-0.8); Eosinophils % (auto) 3.8 % (0.0-7.0); Hematocrit 42.2 % (36.0-46.0); Hemoglobin 13.9 g/dL (12.2-16.2); Lymphocytes # (auto) 4.1 10 ^3/uL (0.4-5.4); Lymphocytes % (auto) 44.2 % (10.0-50.0); Mean Corpuscular Hemoglobin 29.4 pg (28.0-32.0); Mean Corpuscular Hgb Conc. 32.8 g/dL (32.0-36.0); Mean Corpuscular Volume 89.7 fL (80.0-100.0); Monocytes # (auto) 0.6 10 ^3/uL (0-1.3); Monocytes % (auto) 6.9 % (0.0-12.0); Neutrophils # (auto) 4.1 10 ^3/uL (1.6-8.6); Neutrophils % (auto) 44.2 % (37.0-80.0); Nucleated Red Blood Cells % 0.2 %; Red Cell Distribution Width 14.2 % (11.8-14.3); White Blood Cell 9.3 10^3/uL (4.4-10.8)
[2022-11-20] MEDS: InsuLIN REG 1unit/0.01ml Soln (100units/ml) SC SCH ×4 (06:29→21:31)
[2022-11-20] MEDS: ACCU-CHEK COMFORT CURVE STRIP VI SCH ×4 (06:29→21:29)
[2022-11-20 07:01] LABS: Potassium 3.9 mmol/L (3.5-5.1)
[2022-11-20 07:08] LABS: Albumin 2.8 g/dL (3.4-5.0); BUN/Creatinine Ratio 12.2 (10.0-20.0); Calcium 8.6 mg/dL (8.5-10.1)
[2022-11-20 07:10] LABS: Bilirubin, Total 0.2 mg/dL (0.2-1.0); Total Protein 6.6 g/dL (6.4-8.2)
[2022-11-20] MEDS ORDERED: MIDAZOLAM HCL 2MG/2ML 2ml VIAL (1mg/ml) ONE ×2 (07:55→09:37)
[2022-11-20] MEDS ORDERED: VERAPAMIL 2.5MG/ML INJ 2ML VIAL IV ONE (07:55)
[2022-11-20] MEDS ORDERED: fentaNYL CITRATE 100 MCG/2 ML VL ONE ×2 (07:55→09:37)
[2022-11-20] MEDS ORDERED: ANGIOMAX 250 MG VIAL IV ONE ×2 (07:55→09:21)
[2022-11-20] MEDS ORDERED: SODIUM CHL 0.9% 0 ML ONE (07:56)
[2022-11-20] MEDS ORDERED: SODIUM CHL 0.9% 50 ML ONE ×2 (07:58→09:21)
[2022-11-20] MEDS ORDERED: IODIXANOL 320MG/ML 100ML BTL IV ONE ×2 (08:04→08:38)
[2022-11-20] MEDS ORDERED: ASPirin 81 mg TAB ONE (08:30)
[2022-11-20] MEDS ORDERED: CLOPIDOGREL BISULFATE 75 MG TAB ONE (08:30)
[2022-11-20] MEDS ORDERED: hydrALAZINE HCL 20 MG/ML VL ONE (08:42)
[2022-11-20] MEDS: CLOPIDOGREL BISULFATE 75 MG TAB PO SCH (08:47)
[2022-11-20] MEDS: ASPirin 81 mg TAB PO SCH (08:47)
[2022-11-20] MEDS ORDERED: MORPHINE SULFATE INJ 2 MG/ml SYRG IV ONE (09:00)
[2022-11-20] MEDS: MORPHINE SULFATE INJ 2 MG/ml SYRG IV PRN ×3 (09:00→17:48)
[2022-11-20] MEDS ORDERED: LIDOCAINE 2%HCL (LOCAL ANESTH.) INJ 20ML MDV ONE (09:21)
[2022-11-20] MEDS: NITROGLYCERIN 50MG/250ML 250 ML IV SCH ×2 (11:00→18:06)
[2022-11-20] MEDS ORDERED: SODIUM CHLORIDE 0.9% 1,000 ML IV SCH (11:00)
[2022-11-20] MEDS: ATORVASTATIN 20 MG TAB PO SCH (21:29)
[2022-11-21] VITALS (70 sets, daily range): BP systolic 114–164; BP diastolic 68–99; PULSE 72–110; RESP 10–28; TEMP 97.6–98.4; O2SAT 90–100
[2022-11-21] MEDS: MORPHINE SULFATE INJ 2 MG/ml SYRG IV PRN ×2 (01:08→11:39)
[2022-11-21] MEDS ORDERED: FUROSEMIDE 40 MG/4 ML VIAL IV ONE (03:30)
[2022-11-21] MEDS ORDERED: HYDROmorphone HCL 2 MG/ML VL/or syr IV ONE (03:30)
[2022-11-21] MEDS: InsuLIN REG 1unit/0.01ml Soln (100units/ml) SC SCH ×4 (07:00→22:15)
[2022-11-21] MEDS: ACCU-CHEK COMFORT CURVE STRIP VI SCH ×4 (07:29→22:12)
[2022-11-21 08:38] LABS: Basophils # (auto) 0.1 10 ^3/uL (0-0.2); Basophils % (auto) 1.2 % (0.0-2.0); Eosinophils # (auto) 0 10 ^3/uL (0-0.8); Eosinophils % (auto) 0.2 % (0.0-7.0); Hematocrit 40.9 % (36.0-46.0); Hemoglobin 13.6 g/dL (12.2-16.2); Lymphocytes # (auto) 1.8 10 ^3/uL (0.4-5.4); Lymphocytes % (auto) 14.7 % (10.0-50.0); Mean Corpuscular Hemoglobin 29.9 pg (28.0-32.0); Mean Corpuscular Hgb Conc. 33.4 g/dL (32.0-36.0); Mean Corpuscular Volume 89.6 fL (80.0-100.0); Monocytes # (auto) 0.7 10 ^3/uL (0-1.3); Monocytes % (auto) 5.5 % (0.0-12.0); Neutrophils # (auto) 9.5 10 ^3/uL (1.6-8.6); Neutrophils % (auto) 78.4 % (37.0-80.0); Nucleated Red Blood Cells % 0.2 %; Red Blood Cells 4.57 10^6/uL (4.0-5.20); Red Cell Distribution Width 14.4 % (11.8-14.3); White Blood Cell 12.1 10^3/uL (4.4-10.8)
[2022-11-21] MEDS: ASPirin 81 mg TAB PO SCH (08:47)
[2022-11-21] MEDS: EMPAGLIFLOZIN 10 MG TAB PO SCH (08:48)
[2022-11-21] MEDS: CLOPIDOGREL BISULFATE 75 MG TAB PO SCH (08:48)
[2022-11-21 09:04] LABS: BUN/Creatinine Ratio 9.8 (10.0-20.0); Calcium 8.4 mg/dL (8.5-10.1); Potassium 3.7 mmol/L (3.5-5.1)
[2022-11-21] MEDS ORDERED: CARVEDILOL 3.125 MG TAB PO ONE (11:00)
[2022-11-21] MEDS: RANOLAZINE ER 500 MG TAB PO SCH (21:58)
[2022-11-21] MEDS: ATORVASTATIN 20 MG TAB PO SCH (21:59)
[2022-11-21] MEDS: CARVEDILOL 3.125 MG TAB PO SCH (21:59)
[2022-11-21] MEDS: HYDROcodone-ACET 5/325MG TAB PO PRN (22:00)
[2022-11-22] VITALS (18 sets, daily range): BP systolic 110–152; BP diastolic 63–87; PULSE 74–92; RESP 10–21; TEMP 97.7–98.7; O2SAT 90–100
[2022-11-22] MEDS: EMPAGLIFLOZIN 10 MG TAB PO SCH (06:32)
[2022-11-22] MEDS: ACCU-CHEK COMFORT CURVE STRIP VI SCH ×2 (06:32→11:10)
[2022-11-22] MEDS: InsuLIN REG 1unit/0.01ml Soln (100units/ml) SC SCH ×2 (06:43→11:19)
[2022-11-22] MEDS ORDERED: FAMOTIDINE 20 MG TAB PO SCH (10:00)
[2022-11-22] MEDS ORDERED: ASPI-325 PO (10:41)
[2022-11-22] MEDS ORDERED: EMPA1TAB PO (10:41)
[2022-11-22] MEDS ORDERED: ATOR20TA50 PO (10:41)
[2022-11-22] MEDS ORDERED: CLOP75TA70 PO (10:41)
[2022-11-22] MEDS ORDERED: RANO500T3 PO (10:41)
[2022-11-22] MEDS ORDERED: CAR3125T PO (10:41)
[2022-11-22] MEDS ORDERED: NITR0.4S29 SL (11:01)
[2022-11-22] MEDS: RANOLAZINE ER 500 MG TAB PO SCH (11:08)
[2022-11-22] MEDS: CARVEDILOL 3.125 MG TAB PO SCH (11:09)
[2022-11-22] MEDS: CLOPIDOGREL BISULFATE 75 MG TAB PO SCH (11:09)
[2022-11-22] MEDS: ASPirin 81 mg TAB PO SCH (11:10)
[2022-11-22] MEDS: HYDROcodone-ACET 5/325MG TAB PO PRN ×2 (11:37→15:37)
[2022-11-23] MEDS ORDERED: HYDR1TAB97 PO (14:00)
== END 2022-11-22 17:35 | disposition home health service (06) | DRG 246 ==
LOC: ER 22:40 → EDBD 22:40 → TELE 11-19 03:05 → ICU WEST 11-20 10:24
PROVIDERS: ADMIT Internal Medicine; ATTEND Internal Medicine
PROC: 027137Z Dilation of Coronary Artery, Two Arteries with Four or More Drug-eluting Intraluminal Devices, Percutaneous Approach (ICD-10-PCS; principal; 2022-11-20)
PROC: 4A023N7 Measurement of Cardiac Sampling and Pressure, Left Heart, Percutaneous Approach (ICD-10-PCS; 2022-11-20)
PROC: B211YZZ Fluoroscopy of Multiple Coronary Arteries using Other Contrast (ICD-10-PCS; 2022-11-20)
PROC: B41F1ZZ Fluoroscopy of Right Lower Extremity Arteries using Low Osmolar Contrast (ICD-10-PCS; 2022-11-20)
DX: I21.4 Non-ST elevation (NSTEMI) myocardial infarction (principal); I25.10 Atherosclerotic heart disease of native coronary artery without angina pectoris; I10 Essential (primary) hypertension; D72.829 Elevated white blood cell count, unspecified; E78.5 Hyperlipidemia, unspecified; E83.51 Hypocalcemia; E87.6 Hypokalemia; E66.9 Obesity, unspecified; E11.9 Type 2 diabetes mellitus without complications; K21.9 Gastro-esophageal reflux disease without esophagitis; Z88.2 Allergy status to sulfonamides; Z91.199 Patient's noncompliance with other medical treatment and regimen due to unspecified reason; Z68.35 Body mass index [BMI] 35.0-35.9, adult
CPT/HCPCS: 36415; 71045; 80048; 80053; 80061; 81001; 82962; 83036; 83735; 83880; 84443; 84484; 85025; 85610; 85730; 87081; 92929; 92941; 93005; 93306; 93458; 96365; 96375; 99152; 99153; C1874; G0378; J1815; J2250; J2405; J3480; P9047; Q9967

== ENCOUNTER 2024-06-25 19:14 | Emergency (ER) | payer OTHER ==
[~2024-06-25] VITALS: Ht 157.5 cm; Wt 70.3 kg
[~2024-06-25 19:14] MED LIST changes: -ACET500T58 PO; +ASPI-325 PO; +ATOR20TA50 PO; -BENZ100C19 PO; +CARV-214 PO; +CLOP75TA70 PO; +EMPA1TAB PO; +HYDR1TAB97 PO; -IBUP-1454 PO; -LORA-483 GT; +NITR0.4S29 SL; +RANO500T3 PO
--- NOTE | 2024-06-25 19:46 | ED.PDOC ---
History of Present Illness HPI Comments 64-year-old female is brought in by ambulance for complaint abdominal pain, nausea, vomiting, and diarrhea, today. Per EMS report, patient endorses on progressively worsening symptoms for the past 2x weeks following initial unprovoked and gradual onset. She comments on pain originating in her epigastric region and radiating to her RUQ area and having multiple nausea and vomiting and 2x watery-brown diarrhea episodes since. Patient also reports on recent cessation of Ozempic medication 1 week ago going to a [facility] urgent care facility multiple times and receiving cardiac workup, with no significant findings made then. Is having any hematemesis, hematochezia, symptoms, fever, chills, or other associated symptoms or modifiers at this time. Chief Complaint: Abdominal Pain Time Seen by MD: 19:25 Primary Care Provider: CLINIC Reviewed Notes: Nurses Notes, Hydraulic Jack Adjuster Notes, Medications, Allergies Allergies: Coded Allergies: Sulfa Antibiotics (Verified Allergy, Unknown, 06/23/18) Home Meds Active Scripts Hydrocodone-Acetaminophen (Hydrocodone/Acetaminophen 5-325 mg) 1 Tab Tab, 1 TAB PO Q6HPRN PRN, #12 TAB Prov:ROS ESPARZA MD 11/23/22 Nitroglycerin (NTROSTAT SUBLINGUAL) 0.4 Mg Sl, 0.4 MG SL Q5MINP PRN, #60 TAB Prov:ROS ESPARZA MD 11/22/22 Ranolazine (Ranolazine ER) 500 Mg Tab, 500 MG PO BID, #60 TAB Prov:ROS ESPARZA MD 11/22/22 Empagliflozin (Jardiance) 10 Mg Tab, 10 MG PO QAM, #30 TAB Prov:ROS ESPARZA MD 11/22/22 Clopidogrel Bisulfate (CLOPIDOGREL) 75 Mg Tab, 75 MG PO DAILY, #30 TAB Prov:ROS ESPARZA MD 11/22/22 Carvedilol (COREG) 3.125 Mg Tab, 6.25 MG PO Q12HR, #60 TAB Prov:ROS ESPARZA MD 11/22/22 Atorvastatin Calcium (ATORVASTATIN CALCIUM) 20 Mg Tab, 20 MG PO HS, #30 TAB Prov:ROS ESPARZA MD 11/22/22 Aspirin (Aspirin Low Dose) 81 Mg Tab, 81 MG PO DAILY, #30 TAB Prov:ROS ESPARZA MD 11/22/22 Information Source: Patient, Emergency Med Personnel Mode of Arrival: EMS Severity: Moderate Timing: Weeks Duration: Since onset Prehospital treatment: 12 Lead EKG, Guest Service Manager Past Medical History PAST MEDICAL HISTORY: CAD, DM (Type 2), GERD, High Lipids, HTN, [place] (NSTEMI) Surgical History (Other): PCI, LANA EXERCISE PHYSIOLOGIST CERTIFIED History: No Pertinent EXERCISE PHYSIOLOGIST CERTIFIED History Family History Family History: Unknown Social History Smoker: Non-Smoker Alcohol: Denies ETOH Use Drugs: Denies Drug Use Lives In: Home All Other Systems: Reviewed and Negative (Comprehensive systems review obtained and negative except for what is stated in the HPI.) Physical Exam General Appearance: No Apparent Distress, Normal HEENT: Normal ENT Inspection, Pharynx Normal, TMs Normal Neck: Full Range of Motion, Non-Tender, Normal, Normal Inspection Respiratory: Chest Non-Tender, Lungs Clear, No Accessory Muscle Use, No Respiratory Distress, Normal Breath Sounds Cardiovascular: No Edema, No JVD, No Murmur, No Gallop, Normal Peripheral Pulses, Regular Rate/Rhythm Breast Exam: Deferred Gastrointestinal: No Organomegaly, No Pulsatile Mass, Normal Bowel Sounds, RUQ (Tenderness), Soft, Tenderness (Right upper quadrant) Genitalia: Deferred Pelvic: Deferred Rectal: Deferred Extremities: No calf tenderness, Normal capillary refill, Normal inspection, Normal range of motion, Non-tender, No pedal edema Musculoskeletal : Apperance: Normal Neurologic: Alert, battery builder II-XII nml as Tested, No Motor Deficits, Normal Affect, Normal Mood, No Sensory Deficits Cerebellar Function: Normal Reflexes: Normal Skin: Dry, Normal Color, Warm Lymphatic: No Adenopathy Was a procedure done? Was a procedure done?: No EKG EKG : Pulse Rate (adult): 77 [place]: Normal Cardiac Rhythm: NSR Block: None Hypertrophy: None ST: Normal Differential Dx Considerations may include: Cholecystitis, cholelithiasis, gastritis, gastroenteritis, GERD, PUD, spoiled food, viral syndrome, among others X-Ray, Labs, Meds, VS Vital Signs Date Time Temp Pulse Resp B/P (MAP) Pulse Ox O2 Delivery O2 Flow Rate FiO2 06/25/24 23:10 98.2 73 16 151/77 (101) 99 98.2 06/25/24 21:38 72 18 138/67 06/25/24 21:20 Room Air* 0 21 06/25/24 21:08 72 18 138/67 06/25/24 21:01 98.1 72 18 138/67 (90) 97 98.1 06/25/24 19:46 77 06/25/24 19:22 77 06/25/24 19:22 98.1 78 20 187/89 (121) 99 Lab Test 06/25/24 21:24 06/25/24 19:52 Range/Units Urine Color Light-yellow Yellow Urine Clarity Turbid H Clear Urine pH 6.0 5.0-9.0 Urine Specific [place] 1.011 1.001-1.035 Urine Protein 1+ H Negative Urine Ketones Negative Negative Urine Blood 1+ H Negative /uL Urine Nitrite Negative Negative Urine Bilirubin Negative Negative Urine Urobilinogen Normal Negative mg/dL Urine Leukocyte Esterase 3+ Negative /uL Urine RBC 2 0 - 4 /hpf Urine WBC Clumps Present None Seen /hpf Urine Microscopic WBC 117 H 0-5 /HPF Urine Squamous Epithelial Cells Few <5 /hpf Urine Bacteria None seen None Seen /hpf Urine Yeast (Budding) Occasional None Seen /hpf Urine Glucose Normal Normal mg/dL White Blood Count 10.2 4.4-10.8 10^3/uL Red Blood Count 4.60 4.0-5.20 10^6/uL Hemoglobin 13.6 12.2-16.2 g/dL Hematocrit 40.7 36.0-46.0 % Mean Corpuscular Volume 88.4 80.0-100.0 fL Mean Corpuscular Hemoglobin 29.5 28.0-32.0 pg Mean Corpuscular Hemoglobin Concent 33.4 32.0-36.0 g/dL Red Cell Distribution Width 14.1 11.8-14.3 % Platelet Count 596 H 140-450 10^3/uL Mean Platelet Volume 7.4 6.9-10.8 fL Neutrophils (%) (Auto) 56.6 37.0-80.0 % Lymphocytes (%) (Auto) 29.7 10.0-50.0 % Monocytes (%) (Auto) 8.7 0.0-12.0 % Eosinophils (%) (Auto) 4.5 0.0-7.0 % Basophils (%) (Auto) 0.5 0.0-2.0 % Neutrophils # (Auto) 5.8 1.6-8.6 10 ^3/uL Lymphocytes # (Auto) 3.0 0.4-5.4 10 ^3/uL Monocytes # (Auto) 0.9 0-1.3 10 ^3/uL Eosinophils # (Auto) 0.5 0-0.8 10 ^3/uL Basophils # (Auto) 0.1 0-0.2 10 ^3/uL Nucleated Red Blood Cells 0.2 % Sodium Level 134 L 136-145 mmol/L Potassium Level 4.0 3.5-5.1 mmol/L Chloride Level 101 98-107 mmol/L Carbon Dioxide Level 21 20-31 mmol/L Anion Gap 12 5-15 Blood Urea Nitrogen 12 9-23 mg/dL Creatinine 1.09 H 0.550-1.02 mg/dL Glomerular Filtration Rate Calc 56 >90 mL/min BUN/Creatinine Ratio 11.0 10.0-20.0 Serum Glucose 203 H 74-106 mg/dL Calcium Level 10.2 8.7-10.4 mg/dL Total Bilirubin 0.2 0.2-1.0 mg/dL Aspartate Amino Transferase (AST) 14 13-40 U/L Alanine Aminotransferase (ALT) 27 7-40 U/L Alkaline Phosphatase 81 46-116 U/L Total Protein 8.0 5.7-8.2 g/dL Albumin 4.4 3.2-4.8 g/dL Lipase 77 H 12-53 U/L Current Medications Medications (Trade) Dose Ordered Sig/David Route Start Time Stop Time Status Last Admin Sodium Chloride 1,000 ml @ 1,000 mls/hr Q1H ONCE IV 06/25/24 19:30 06/25/24 20:29 DC 06/25/24 21:07 Ondansetron HCl (Zofran) 4 mg ONCE ONCE IV 06/25/24 19:30 06/25/24 19:31 DC 06/25/24 21:09 Morphine Sulfate 4 mg ONCE ONCE IV 06/25/24 19:30 06/25/24 19:31 DC 06/25/24 21:08 Pantoprazole Sodium (Protonix) 40 mg ONCE ONCE IV 06/25/24 19:30 06/25/24 19:31 DC 06/25/24 21:08 Time of 1ST Reevaluation: 19:55 Reevaluation 1ST: Unchanged Patient Education/Counseling: Diagnosis, Treatment Family Education/Counseling: No Family Present Additional Information Previous visit documents reviewed: 11/19/2022 The following tests were ordered, and results were reviewed by me: UA, lipase, CBC, CMP, EKG Additional Information was gathered from interviewing the following independent historians: EMS I discussed treatment and results with medical personnel and: patient Departure 1 Departure Time of Disposition: 23:21 (Patient presented with abdominal pain that was concerning for possible appendicits, gastritis, cholecystitis, colitis, gastroenteritis, or orther possible surgical emergency. Data: 1. I ordered and reviewed the result of at least 3 labs including a CBC, BMP, and Urinalysis. 2. I independently interpreted the following tests: Ultrasound is concerning for cholelithiasis without cholecystitis.Risk:This patient has a high risk of morbidity due to further diagnostic testing or treatment and may suffer from an acute abdominal process disorder. Fortunately workup reveals cholelithiasis and acute cystitis and patient can be safely discharged to home with outpatient follow up.) Impression: Primary Impression: Acute cystitis Qualified Codes: N30.00 - Acute cystitis without hematuria Additional Impressions: Cholelithiasis Qualified Codes: K80.20 - Calculus of gallbladder without cholecystitis without obstruction Nausea and vomiting Qualified Codes: R11.14 - Bilious vomiting Disposition: 01 HOME / SELF CARE / HOMELESS Condition: Stable Referrals: MOE CANTRELL MD Additional Instructions: You have a urinary tract infection. You also have a gallstone. You were prescribed antibiotics. Please take as directed. You can take Tylenol Motrin as needed for pain. It is important that he follow up with the regular doctor within 1 week to ensure you are doing better. If your symptoms worsen or you have any other concerns then please return to the emergency room. e-Prescriptions Cefdinir (Cefdinir) 300 Mg Cap 1 CAP PO BID for 5 Days, #14 CAP Prov: EARNESTINE BROWN MD 06/25/24 Discharged With: Self Critical Care Note Critical Care Time?: No Stability Stability form required: No Heart Score Heart Score: Heart Score Response (Comments) Value History N/A 0 EKG N/A 0 Age N/A 0 Risk Factors N/A 0 Troponin N/A 0 Total 0 I personally scribed for EARNESTINE BROWN MD ([email or web address]) on 06/25/24 at 19:46. Electronically submitted by Davi Stone [email or web address]). EARNESTINE BROWN MD Jun 25, 2024 19:46
[2024-06-25 20:11] LABS: Eosinophils # (auto) 0.5 10 ^3/uL (0-0.8); Eosinophils % (auto) 4.5 % (0.0-7.0)
[2024-06-25 20:13] LABS: Basophils # (auto) 0.1 10 ^3/uL (0-0.2); Basophils % (auto) 0.5 % (0.0-2.0); Hematocrit 40.7 % (36.0-46.0); Hemoglobin 13.6 g/dL (12.2-16.2); Lymphocytes % (auto) 29.7 % (10.0-50.0); Mean Corpuscular Hemoglobin 29.5 pg (28.0-32.0); Mean Corpuscular Hgb Conc. 33.4 g/dL (32.0-36.0); Mean Corpuscular Volume 88.4 fL (80.0-100.0); Monocytes # (auto) 0.9 10 ^3/uL (0-1.3); Monocytes % (auto) 8.7 % (0.0-12.0); Neutrophils # (auto) 5.8 10 ^3/uL (1.6-8.6); Neutrophils % (auto) 56.6 % (37.0-80.0); Nucleated Red Blood Cells % 0.2 %; Platelet Count (auto) 596 10^3/uL (140-450); Red Cell Distribution Width 14.1 % (11.8-14.3); White Blood Cell 10.2 10^3/uL (4.4-10.8)
[2024-06-25 20:32] LABS: Alanine Aminotransferase 27 U/L (7-40); Albumin 4.4 g/dL (3.2-4.8); Alkaline Phosphatase 81 U/L (46-116); Anion Gap 12 (5-15); Aspartate Aminotransferase 14 U/L (13-40); Blood Urea Nitrogen 12 mg/dL (9-23); Calcium 10.2 mg/dL (8.7-10.4); Carbon Dioxide 21 mmol/L (20-31); Chloride 101 mmol/L (98-107)
[2024-06-25 21:06] LABS: Bilirubin, Total 0.2 mg/dL (0.2-1.0); Glucose 203 mg/dL (74-106); Lipase 77 U/L (12-53); Sodium 134 mmol/L (136-145)
[2024-06-25] MEDS: SODIUM CHLORIDE 0.9% 1,000 ML IV ONE (21:07)
[2024-06-25] MEDS: PANTOPRAZOLE 40 MG/10 ML VIAL INJ IV ONE (21:08)
[2024-06-25] MEDS: MORPHINE SULFATE 4 MG/ML SYR/VIAL IV ONE (21:08)
[2024-06-25] MEDS: ONDANSETRON HCL 4 MG/2 ML VIAL IV ONE (21:09)
[2024-06-25 22:29] LABS: Urine Bacteria None Seen /hpf (None Seen)
[2024-06-25 22:46] LABS: Urine Blood 1+ /uL (Negative); Urine Budding Yeast OCCASIONAL /hpf (None Seen); Urine Clarity Turbid (Clear); Urine Color Light-Yellow (Yellow); Urine Protein, UAD 1+ (Negative); Urine Specific Gravity 1.011 (1.001-1.035); Urine Squamous Epithelial Cell FEW /hpf (<5); Urine Urobilinogen Normal (Negative); Urine WBC 117 /HPF (0-5); Urine WBC Clumps PRESENT /hpf (None Seen)
--- NOTE | 2024-06-25 23:04 | DVH ---
INDICATION: ruq pain TECHNIQUE: Multiple real-time sonographic images of the abdomen were obtained. COMPARISON: None FINDINGS: The liver is homogenous in echogenicity. The liver measures 14.5 cm. No intrahepatic bilia ry ductal dilatation is noted. The gallbladder wall measures 0.26 cm and is unremarkable. There are stones in the gallbladder whic h appear mobile The common duct measures 0.35 cm and is unremarkable. No pericholecystic fluid is n oted. Sound marina's sign is negative. The right kidney measures 9 cm. No hydronephrosis. The pancreas is normal. IMPRESSION: 1. Liver measures 14.5 cm in length 2. There is gallstones with no dilated duct or thickened gallbladder wall. A negative ultrasound murp hy's sign is elicited. 3. Right kidney measures 9 cm and appears normal
[2024-06-25 23:10] VITALS: BP 151/77; PULSE 73; RESP 16; TEMP 98.2; O2SAT 99
[2024-06-25] MEDS ORDERED: CEFD300C2 PO (23:22)
[2024-06-25] MEDS: cefTRIAXone 1GM/50ML D5W 50 ML IV ONE (23:45)
--- NOTE | 2024-06-26 03:29 | ECG ---
[facility] Test Date: 2024-06-25 Test Time: 19:22:01 Pat Name: ELIJAH BURRELL Department: er Room: Gender: F Supervisor [employer]: er : 1960 Requested By: EARNESTINE BROWN Order Number: [id number] Reading MD: David Ontiveros Measurements Intervals [place] Rate: 77 P: 55 ND: 156 QRS: 49 QRSD: 123 T: 32 QT: 397 QTc: 450 Interpretive Statements Sinus rhythm Left bundle branch block Baseline wander in lead(s) II,III,aVF,V6 Electronically Signed On 06-28-2024 17:55:08 PST by David Ontiveros Please click the below link to view image of tracing.
== END 2024-06-26 00:50 | disposition home or self-care (01) ==
LOC: EDBD 19:14 → ER 19:14
DX: N30.00 Acute cystitis without hematuria (principal); K80.20 Calculus of gallbladder without cholecystitis without obstruction; K21.9 Gastro-esophageal reflux disease without esophagitis; I10 Essential (primary) hypertension; E11.9 Type 2 diabetes mellitus without complications; E78.5 Hyperlipidemia, unspecified; I25.2 Old myocardial infarction; I25.10 Atherosclerotic heart disease of native coronary artery without angina pectoris; Z79.82 Long term (current) use of aspirin; Z79.01 Long term (current) use of anticoagulants; Z79.02 Long term (current) use of antithrombotics/antiplatelets; Z79.84 Long term (current) use of oral hypoglycemic drugs; Z79.899 Other long term (current) drug therapy; Z88.2 Allergy status to sulfonamides
CPT/HCPCS: 36415; 76705; 80053; 81001; 83690; 85025; 93005; 96361; 96365; 96375; 99285; J0696; J2270; J2405; J2470; J7030